=== PATIENT | female | born 1955 | race Caucasian/White ===

== ENCOUNTER 2021-11-24 22:16 | Emergency (ER) | payer MEDICARE ==
[~2021-11-24] VITALS: Ht 175.3 cm; Wt 77.3 kg
[2021-11-24] MEDS: PERTUSS(ACELL),DIPH,TET VAC/PF 0.5 ML SYRINGE IM. ONE (22:38)
[2021-11-24] MEDS: ACETAMINOPHEN 500 MG TABLET PO ONE (23:43)
[2021-11-24 23:50] VITALS: BP 149/87
== END 2021-11-24 23:57 | disposition home or self-care (01) ==
LOC: EMS 22:19
DX: S09.90XA Unspecified injury of head, initial encounter (principal); S01.01XA Laceration without foreign body of scalp, initial encounter; I10 Essential (primary) hypertension; E03.9 Hypothyroidism, unspecified; E78.00 Pure hypercholesterolemia, unspecified; W18.39XA Other fall on same level, initial encounter; Y93.89 Activity, other specified; Y92.89 Other specified places as the place of occurrence of the external cause; Y99.8 Other external cause status
CPT/HCPCS: 12001; 70450; 90471; 90715; 99284